=== PATIENT | male | born 1955 | race American Indian/Alaskan Native ===

== ENCOUNTER 2021-08-13 06:30 | Day surgery (SDC) | payer OTHER ==
[~2021-08-13] VITALS: Ht 177.8 cm; Wt 120.9 kg
[~2021-08-13 06:30] MED LIST: BAYER CHEWABLE81 MG PO; D3-501250 MCG PO; FERROUS FUMARA324 MG PO; FLOMAX0.4 MG PO; IBUPROFEN800 MG PO; LEVOTHYROXINE75 MC1 PO; LIPITOR20 MG; METFORMIN HCL500 M2 PO; OZEMPIC1 MG/0.71 SQ; TRESIBA FL100 UNIT/1 SQ; TURMERIC500 M2 PO; ZESTRIL40 MG PO; [UNRECOGNIZED DRUG - OTHER]
[2021-08-13] MEDS ORDERED: HYDROCODON-ACE1 EA10 PO (08:29)
[2021-08-13] MEDS ORDERED: CELECOXIB200 MG PO (08:29)
[2021-08-13] MEDS ORDERED: ASPIRIN325 MG PO (08:29)
--- NOTE | 2021-08-16 07:02 | OR ---
[facility] [address], [place] [address] Signed DATE OF OPERATION: 08/13/2021 SURGEON: Jairo Porter MD PREOPERATIVE DIAGNOSIS: Medial meniscus tear, left knee. POSTOPERATIVE DIAGNOSIS: Medial meniscus tear, left knee. PROCEDURES PERFORMED: Left knee arthroscopy with partial medial meniscectomy. [employer]AL[employer] SYSTEMS MANAGER: None. ANESTHESIA: General. ESTIMATED BLOOD LOSS: Minimal. BRIEF HISTORY: Tremayne is a 66-year-old gentleman with pain locking in his knee. Mild arthritis was noted on his x-rays. MRI showed a large degenerative tear posteromedially. Risks, benefits, and alternatives of operative treatment were discussed with him and he elected to proceed. Once consent was obtained, he was taken to the operating room. After adequate anesthesia, he was placed on operating table. All downside pressure points well padded. The left leg was placed in a well-padded leg epps. The right leg was flexed, abducted, and externally rotated on a well-padded leg epps. The leg was then prepped and draped in a standard sterile fashion. Portal sites were injected using 0.25% Marcaine with epinephrine. Standard inferolateral and superolateral portals were made. The scope was introduced into the knee. ARTHROSCOPIC FINDINGS: The patella showed grade 3 chondromalacia. The trochlea had grade 2 to grade 3 changes. Medial and lateral gutters were clear. ACL was intact. Lateral compartment showed diffuse grade 2 to grade 3 chondromalacia, particularly on the femoral side. The meniscus was intact. Medial compartment showed grade 2-3 chondromalacia on both sides of the joint. There was a complex degenerative tear posteromedially. Electronically Signed By: JAIRO PORTER MD 08/16/21 0702 PATIENT NAME: TREMAYNE BARNETT OPERATIVE REPORT DATE OF : 57 REPORT #: [id number] PHYSICIAN: JAIRO PORTER MD PCP: DONAL COX REPORT IS CONFIDENTIAL AND NOT TO BE RELEASED WITHOUT AUTHORIZATION [facility] [address], [place] [address] Signed DESCRIPTION OF PROCEDURE: Standard inferomedial portal was localized after using a spinal needle. The straight and curved biters were then used to trim the meniscus tear back to a stable rim. This was then smoothed using the shaver and all debris was evacuated. Several chondral flaps on the medial femoral condyle were also debrided. The scope was then withdrawn. Portals were closed with 3-0 nylon and the knee was injected with 60 mg Toradol at the end of the case. The wounds were dressed with Adaptic, ABD, and Haroldo wrap. He tolerated the procedure well. All sponge, needle, and instrument counts were correct. Jairo Porter MD BA/MODL /[id number] Copies: ~ Electronically Signed By: JAIRO PORTER MD 08/16/21 0702 PATIENT NAME: TREMAYNE BARNETT OPERATIVE REPORT DATE OF : 57 REPORT #: [id number] PHYSICIAN: JAIRO PORTER MD PCP: DONAL COX REPORT IS CONFIDENTIAL AND NOT TO BE RELEASED WITHOUT AUTHORIZATION
== END 2021-08-13 10:00 | disposition home or self-care (01) ==
LOC: DS 06:30
PROVIDERS: ATTEND Specialist
PROC: 0SBD4ZZ Excision of Left Knee Joint, Percutaneous Endoscopic Approach (ICD-10-PCS; principal; 2021-08-13 07:40)
DX: M23.332 Other meniscus derangements, other medial meniscus, left knee (principal); M94.262 Chondromalacia, left knee; Z87.891 Personal history of nicotine dependence
CPT/HCPCS: J0131; J0690; J1885; J2001; J2405; J2704; J3010; J7121

== ENCOUNTER 2024-06-20 13:35 | Emergency (ER) | payer OTHER ==
[~2024-06-20] VITALS: Ht 177.8 cm; Wt 113.4 kg
[~2024-06-20 13:35] MED LIST changes: +24 HOUR ALLERG9.9 ML NAS; +ASPIRIN325 MG PO; +CELECOXIB200 MG PO; +CLARITIN10 MG PO; +DULOXETINE HCL30 MG PO; +HYDROCODON-ACE1 EA10 PO; +MAGNESIUM400 MG PO
[2024-06-20] MEDS ORDERED: ACETAMINOPHEN 325 MG TAB PO ONE (17:30)
[2024-06-20] MEDS ORDERED: DIPHTH,PERTUSS(ACELL),TET VAC 0.5 ML SYRINGE IM ONE (17:30)
[2024-06-20 19:45] VITALS: BP 154/83
== END 2024-06-20 19:45 | disposition home or self-care (01) ==
LOC: ED 13:35
DX: S52.021B Displaced fracture of olecranon process without intraarticular extension of right ulna, initial encounter for open fracture type I or II (principal); S00.03XA Contusion of scalp, initial encounter; M54.50 Low back pain, unspecified; M54.2 Cervicalgia; W00.0XXA Fall on same level due to ice and snow, initial encounter; I10 Essential (primary) hypertension; E11.9 Type 2 diabetes mellitus without complications; Z23 Encounter for immunization; Z79.82 Long term (current) use of aspirin; Z79.84 Long term (current) use of oral hypoglycemic drugs; Z79.890 Hormone replacement therapy; Z79.4 Long term (current) use of insulin; Z79.899 Other long term (current) drug therapy; Z88.8 Allergy status to other drugs, medicaments and biological substances
CPT/HCPCS: 70450; 72070; 72125; 73080; 73110; 90471; 90715; 99284-25; A9270